=== PATIENT | female | born 1960 | race Caucasian/White ===

== ENCOUNTER → 2018-02-26 | Outpatient (REF) | payer OTHER | LOC: M LAB REF 14:33 | DX: R22.0 Localized swelling, mass and lump, head (principal) ==

== ENCOUNTER → 2018-11-18 | Outpatient (REF) | payer BC ==
[~2018-11-18] MED LIST: CALCTAB28 PO; OMEP40CA2 PO; vitamin d3 PO
== END ==
LOC: M LAB LCGH 11:32
PROVIDERS: ATTEND Obstetrics & Gynecology
DX: N92.4 Excessive bleeding in the premenopausal period (principal)